=== PATIENT | male | born 1970 | race Caucasian/White ===

== ENCOUNTER → 2019-08-13 | Outpatient (CLI) | payer BC ==
--- NOTE | 2019-08-13 14:58 | Diagnostic Imaging Report ---
EXAMINATION: Lumbar spine series. INDICATION: Low back pain. FINDINGS: Alignment of the lumbar spine appears normal. The vertebral body heights appear maintained. There is mild lower lumbar facet hypertrophy, most significant at L5-S1. There also appears to be moderate L5-S1 disc space height loss. IMPRESSION: 1. Normal height and alignment of the lumbar spine with degenerative disc disease and facet arthropathy, most significantly demonstrated at the L5-S1 level. Dictated by: Dictated on workstation # [id number]
--- NOTE | 2019-08-13 15:01 | Diagnostic Imaging Report ---
INDICATION: Back pain. FINDINGS: There are no plain film findings that suggest abnormal cortical disruption of the sacrum or coccyx. Some mild irregularity is demonstrated of the distal coccygeal segments which can be a normal variant. There is no buckling of the foramina of the sacrum on the AP view. IMPRESSION: The plain film appearance of the sacrum and coccyx appears unremarkable. A well-defined smooth non-fusion of the distal coccygeal segments is most suggestive of a normal coccygeal variant; however, if the patient has pain at this location, further assessment with CT imaging or MRI could be considered. Dictated by: Dictated on workstation # [id number]
== END ==
LOC: RAD 13:05
PROVIDERS: ATTEND Family Medicine
DX: M47.817 Spondylosis without myelopathy or radiculopathy, lumbosacral region (principal); M51.37 Other intervertebral disc degeneration, lumbosacral region
CPT/HCPCS: 72100; 72220

== ENCOUNTER → 2020-05-18 | Outpatient (CLI) | payer BC ==
[2020-05-18 15:38] LABS: HEMOGLOBIN 14.7 g/dL (13.3-17.7); MEAN PLATELET VOLUME 8.7 fL (9.0-12.2); WHITE BLOOD COUNT 10.5 10^3/uL (4.3-11.0)
--- NOTE | 2020-05-18 16:37 | Diagnostic Imaging Report ---
Indication: Chest pain and shortness of breath. Time of exam: 3:32 PM Comparison is made with prior chest from 08/18/2013. Patchy bilateral airspace pulmonary infiltrates are noted consistent with pneumonia. Heart size is stable. No effusion or pneumothorax is detected. Impression: Patchy bilateral infiltrates consistent with pneumonia. Faxed to Irma Harris APRN at 5:27 p.m. by cvb Dictated by: Dictated on workstation # [id number]
== END ==
LOC: RAD 15:14
PROVIDERS: ATTEND Nurse Practitioner Family
DX: U07.1 COVID-19 (principal); R91.8 Other nonspecific abnormal finding of lung field
CPT/HCPCS: 36415; 71046; 85027; 85379

== ENCOUNTER → 2020-05-29 | Outpatient (CLI) | payer BC ==
[~2020-05-29] MED LIST: CATHETER FLUSH 10 ML SYR IV PRN; HOLD METFORMIN - RECEIVED CONTRAST 20 ML VIAL IV SCH; IOHEXOL 350 MG/ML 100 ML (OMNIPAQUE 350) VIAL IV ONE; NS 100 ML (IVPB) BAG IV ONE
--- NOTE | 2020-05-29 15:22 | Diagnostic Imaging Report ---
PROCEDURE: CT angiography of the chest with contrast. TECHNIQUE: Multiple contiguous axial images were obtained through the chest after uneventful bolus administration of intravenous contrast. 3D reconstructed CTA MIP acquisitions were also performed. Auto Exposure Controls were utilized during the CT exam to meet ALARA standards for radiation dose reduction. DATE: May 29, 2020. COMPARISON: Chest radiographs May 18, 2020. INDICATION: 50-year-old male, dyspnea. Shortness of breath. Diagnosis of Covid 19 infection on May 06, 2020. FINDINGS: There is extensive multifocal patchy groundglass consolidation involving both lungs. There is no identified lung mass. There is no pneumothorax. There is no pleural effusion. The central airways are patent. There is no identified pulmonary embolus. The main pulmonary artery diameter is within normal limits. The heart is not enlarged. There is no pericardial effusion. There is no identified abnormally enlarged mediastinal, hilar, or axillary lymph node which meets CT size criteria for adenopathy. The visualized portions of the upper abdomen are unremarkable. There is no identified acute bony abnormality. IMPRESSION: CT CHEST. 1. Extensive multifocal patchy areas of groundglass lung attenuation most compatible with multifocal pneumonia and would be consistent with the history of Covid 19 infection. This is not a specific imaging appearance. An acute pneumonitis would be a differential diagnostic consideration based on imaging appearance alone. 2. No identified pulmonary embolus. Dictated by: Dictated on workstation # [id number]
== END ==
LOC: RAD 14:17
PROVIDERS: ATTEND Family Medicine
DX: J98.4 Other disorders of lung (principal)
CPT/HCPCS: 71275

== ENCOUNTER 2020-09-02 07:25 | Emergency (ER) | payer BC ==
[~2020-09-02] VITALS: Ht 187 cm; Wt 81.6 kg
[2020-09-02 07:48] LABS: BASOPHILS # (AUTO) 0.1 10^3/uL (0.0-0.1); BASOPHILS % (AUTO) 1 % (0-10); EOSINOPHILS # (AUTO) 0.2 10^3/uL (0.0-0.3); EOSINOPHILS % (AUTO) 3 % (0-10); HEMATOCRIT 42 % (40-54); HEMOGLOBIN 14.6 g/dL (13.3-17.7); LYMPHOCYTES # (AUTO) 2.4 10^3/uL (1.0-4.0); LYMPHOCYTES % (AUTO) 37 % (12-44); MEAN CORPUSCULAR HEMOGLOBIN 32 pg (25-34); MEAN CORPUSCULAR HGB CONC 35 g/dL (32-36); MEAN CORPUSCULAR VOLUME 92 fL (80-99); MEAN PLATELET VOLUME 9.7 fL (9.0-12.2); MONOCYTES # (AUTO) 0.6 10^3/uL (0.0-1.0); MONOCYTES % (AUTO) 10 % (0-12); NEUTROPHILS # (AUTO) 3.1 10^3/uL (1.8-7.8); NEUTROPHILS % (AUTO) 49 % (42-75); PLATELET COUNT 240 10^3/uL (130-400); WHITE BLOOD COUNT 6.4 10^3/uL (4.3-11.0)
[2020-09-02 07:55] LABS: ALBUMIN 3.9 GM/DL (3.2-4.5); CHLORIDE 109 MMOL/L (98-107); POTASSIUM 4.3 MMOL/L (3.6-5.0); SODIUM 138 MMOL/L (135-145)
[2020-09-02 07:57] LABS: CALCIUM 8.7 MG/DL (8.5-10.1)
[2020-09-02 07:58] LABS: GLUCOSE 122 MG/DL (70-105); TOTAL PROTEIN 7.2 GM/DL (6.4-8.2)
[2020-09-02 07:59] LABS: CARBON DIOXIDE 20 MMOL/L (21-32)
[2020-09-02 08:00] LABS: BILIRUBIN,TOTAL 0.2 MG/DL (0.1-1.0)
--- NOTE | 2020-09-02 08:00 | ED Neurological Problem ---
General Chief Complaint: Facial Problems Stated Complaint: NUMBNESS IN FACE Nursing Triage Note: pt presents to ed via pov from home with complaints of altered taste and numbness in his tongue since 08/31 and l sided facial numbness and facial droop since this am. Nursing Sepsis Screen: No Definite Risk Source: patient Exam Limitations: no limitations History of Present Illness Date Seen by Provider: Sep 02, 2020 Time Seen by Provider: 07:36 Initial Comments Patient presents ER by private conveyance from home with chief complaint that this morning he woke and while he was trying to brush his teeth half awake he found it very hard to spit. He looked in the mirror and his left face was drooping. He also was having some altered sensation like his left side of his tongue anteriorly is asleep that started on , 2 days ago. Facial droop was present as far as he knows from the time he woke. He is not having any s lurred speech confusion difficulty walking numbness weakness elsewhere. He has no history of hypertension hyperlipidemia coronary disease stroke diabetes or smoking. He follows with Dr. Aguirre routinely and was warned that he is prediabetic. No significant family history except for diabetes and hypertension. No fevers or chills but several months ago in April he was diagnosed with COVID-19. He has been dealing with sinusitis bilaterally but he says that is chronic and mild. He takes Mucinex. The patient took his blood pressure this morning it was 118/50. Allergies and Home Medications Allergies Coded Allergies: No Known Drug Allergies (Verified , 07/28/07) Patient Home Medication List Home Medication List Reviewed: Yes Review of Systems Review of Systems Constitutional: No chills, No diaphoresis Eyes: Denies Blindness, Denies Drainage Ears, Nose, Mouth, Throat: see HPI; denies ear pain, denies ear discharge Respiratory: No cough, No short of breath Cardiovascular: No edema, No Hx of Intervention, No syncope, No vascular heart diseas Gastrointestinal: No abdominal pain, No nausea All Other Systems Reviewed Negative Unless Noted: Yes Past Qwerdcm-Fpegjy-Yxbczr Hx Patient Social History Alcohol Use: Occasionally Uses Drug of Choice: Denies Smoking Status: Never a Smoker Recent Infectious Disease Expo: No Past Medical History Surgeries: Yes (NOVEMBER 2002 OUTPT KNEE SURG ) Respiratory: No Cardiac: No Neurological: No Reproductive Disorders: No Genitourinary: No Gastrointestinal: No Musculoskeletal: No Endocrine: No HEENT: No Cancer: No Psychosocial: No Integumentary: No Blood Disorders: No Physical Exam Vital Signs Vital Signs - First Documented 09/02/20 07:31 Temp 36.0 Pulse 89 Resp 20 B/P (MAP) 173/103 (126) Pulse Ox 95 Capillary Refill : Less Than 3 Seconds Height, Weight, BMI Height: '" Weight: lbs. oz. kg; 23.00 BMI Method:Stated General Appearance: WD/WN, no apparent distress HEENT: PERRL/EOMI, normal ENT inspection, TMs normal, pharynx normal, other (Mild left facial droop) Neck: non-tender, full range of motion, supple, normal inspection Respiratory: lungs clear, normal breath sounds, no respiratory distress, no accessory muscle use Cardiovascular: normal peripheral pulses, regular rate, rhythm Peripheral Pulses: 2+ Radial Pulses (R), 2+ Radial Pulses (L) Neurologic/Psychiatric: alert, normal mood/affect, oriented x 3, other (Using a sharp object he had similar sensation bilateral face. He has mild drooping of the left side of his smile and decreased wrinkling of the left forehead. He describes paresthesia in his left anterior tongue) Crainal Nerves: normal hearing, normal speech, PERRL Coordination/Gait: normal finger to nose, normal gait Motor/Sensory: no pronator drift Skin: normal color, warm/dry Stroke Onset of Symptoms Date of Onset of Symptoms: Sep 02, 2020 Time of Symptom Onset: 06:30 Onset of Symptoms: Yes Symptoms onset unknown: Yes NIH Stroke Scale Assessment Select: Initial Level of Consciousness: 0=Alert (0), Level of Consciousness- Questions: 0=Answers both month/age (0), LOC Commands: 0=Performs both tasks (0), Gaze: Normal (0), Visual Rooney: 0=No visual loss (0), Facial Movement (Facial Paresis): 1=Minor paralysis (1), Motor Function-Arms Right: 0=No drift (0), Motor Function-Arms Left: 0=No drift (0), Motor Function-Legs Right: 0=No drift (0), Motor Function-Legs Left: 0=No drift (0), Limb Ataxia: 0=Absent (0), Sensory: 0=Normal:no loss (0), Best Language: 0=No aphasia (0), Dysarthria: 0=Normal (0), Extinction & Inattention: 0=No abnormality (0), Total: 1 Stroke Thrombolytic Exclusion Age 18 or Over: Yes Acute intenal hemorrhage: No History of CVA: No Uncontrolled Coagulation Defec: No Intracranial Hemorrhage: No Severe Hypertension: No GI or Bleed: No Subarachnoid Hemorrhage: No Intracranial Neoplasm/Aneurysm: No Oral Anticoagulants: No Surgery or Trauma: No Puncture of Non-Compressible V: No Recent CPR: No Diabetic Hemorrhagic Retinopat: No Organ Biopsy: No Recent Obstetric Delivery: No Glucose: No (120) Significant Hepatic Dysfunctio: No NIH Stoke Scale >22: No Bacterial Endocarditis: No Pericarditis: No Improving Symptoms: No Platelets: No TPA Contraindication: No IV - TPa Received IV - TPa Procedure Performed?: No (Inadequate benefits per risk and 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) Progress/Results/Core Measures Results/Orders Lab Results Laboratory Tests Test 09/02/20 07:38 Range/Units White Blood Count 6.4 4.3-11.0 10^3/uL Red Blood Count 4.56 4.30-5.52 10^6/uL Hemoglobin 14.6 13.3-17.7 g/dL Hematocrit 42 40-54 % Mean Corpuscular Volume 92 80-99 fL Mean Corpuscular Hemoglobin 32 25-34 pg Mean Corpuscular Hemoglobin Concent 35 32-36 g/dL Red Cell Distribution Width 12.7 10.0-14.5 % Platelet Count 240 130-400 10^3/uL Mean Platelet Volume 9.7 9.0-12.2 fL Immature Granulocyte % (Auto) 0 % Neutrophils (%) (Auto) 49 42-75 % Lymphocytes (%) (Auto) 37 12-44 % Monocytes (%) (Auto) 10 0-12 % Eosinophils (%) (Auto) 3 0-10 % Basophils (%) (Auto) 1 0-10 % Neutrophils # (Auto) 3.1 1.8-7.8 10^3/uL Lymphocytes # (Auto) 2.4 1.0-4.0 10^3/uL Monocytes # (Auto) 0.6 0.0-1.0 10^3/uL Eosinophils # (Auto) 0.2 0.0-0.3 10^3/uL Basophils # (Auto) 0.1 0.0-0.1 10^3/uL Immature Granulocyte # (Auto) 0.0 0.0-0.1 10^3/uL Prothrombin Time 12.6 12.2-14.7 SEC INR Comment 0.9 0.8-1.4 Activated Partial Thromboplast Time 33 24-35 SEC D-Dimer 0.37 0.00-0.49 UG/ML Sodium Level 138 135-145 MMOL/L Potassium Level 4.3 3.6-5.0 MMOL/L Chloride Level 109 H 98-107 MMOL/L Carbon Dioxide Level 20 L 21-32 MMOL/L Anion Gap 9 5-14 MMOL/L Blood Urea Nitrogen 16 7-18 MG/DL Creatinine 0.98 0.60-1.30 MG/DL Estimat Glomerular Filtration Rate > 60 BUN/Creatinine Ratio 16 Glucose Level 122 H 70-105 MG/DL Glucometer 120 H 70-110 MG/DL Calcium Level 8.7 8.5-10.1 MG/DL Corrected Calcium 8.8 8.5-10.1 MG/DL Total Bilirubin 0.2 0.1-1.0 MG/DL Aspartate Amino Transf (AST/SGOT) 21 5-34 U/L Alanine Aminotransferase (ALT/SGPT) 33 0-55 U/L Alkaline Phosphatase 34 L 40-136 U/L Troponin I < 0.028 <0.028 NG/ML Total Protein 7.2 6.4-8.2 GM/DL Albumin 3.9 3.2-4.5 GM/DL My Orders Orders - RACHEAL DAILEY Cbc With Automated Diff (09/02/20 07:35) Protime With Inr (09/02/20 07:35) Partial Thromboplastin Time (09/02/20 07:35) Comprehensive Metabolic Panel (09/02/20 07:35) Fibrin Degradation Products (09/02/20 07:35) Troponin I (09/02/20 07:35) Ekg Tracing (09/02/20 07:35) Nothing By Mouth (09/02/20 Breakfast) Accucheck Stat ONCE (09/02/20 07:35) Ed Iv/Invasive Line Start (09/02/20 07:35) Ed Iv/Invasive Line Start (09/02/20 07:35) Vital Signs Stroke Patient Q15M (09/02/20 07:35) Ct Head Wo-R/O Stroke (09/02/20 07:35) O2 (09/02/20 07:35) Monitor-Rhythm Ecg Trace Only (09/02/20 07:35) Dysphagia Screening Tool (09/02/20 07:35) Lipid Panel (09/03/20 06:00) Vital Signs/I&O 09/02/20 07:31 Temp 36.0 Pulse 89 Resp 20 B/P (MAP) 173/103 (126) Pulse Ox 95 Blood Pressure Mean: 126 FSBG Bedside Testing Finger Stick Blood Glucose: 120 Blood Glucose Action Taken: PROVIDER NOTIFIED Progress Progress Note : Time: 07:58 Progress Note At 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 There is precedence for this with several case studies written about ipsilateral additional cranial nerve involvement that is usually mild similar to his presentation. We will go ahead and complete a CT and some labs just to rule out significant intracranial pathology. If this is okay then I would set him up to follow-up with Dr. Aguirre on antivirals and steroids. We will observe him for the next hour or so for change in symptoms. We have given good return precautions. Because of sensation on sharp pinpoint challenge of his face is intact bilaterally I suspect that the numbness is feeling in his face is more due to the left facial muscle side due to cranial nerve VII paresis. The left anterior tongue could be related to cranial nerve V versus 7. Initial ECG Impression Date: Sep 02, 2020 Initial ECG Impression Time: 07:45 Initial ECG Rate: 82 Initial ECG Rhythm: Normal Sinus Initial ECG Intervals: Normal Initial ECG Impression: Normal Initial ECG Comparisson: No Previous ECG Available Comment Normal sinus rhythm without clinically relevant ST changes. Diagnostic Imaging Diagonstic Imaging: CT (Without IV contrast) Plain Films/CT/US/NM/MRI: head Comments No acute intracranial pathology. No calvarial fracture, tumor, midline shift, hemorrhage. NAME: [facility] MED REC#: [id number] PT STATUS: REG ER : 1970 PHYSICIAN: RACHEAL DAILEY MD ADMIT DATE: 09/02/20/ER Draft Date of Exam:09/02/20 CT HEAD WO-R/O STROKE PROCEDURE: CT head wo r/o stroke. TECHNIQUE: Multiple contiguous axial images were obtained through the brain without the use of intravenous contrast. Auto Exposure Controls were utilized during the CT exam to meet ALARA standards for radiation dose reduction. Indication: Altered mental status. Comparison: 05/23/2011. Discussion: No adverse interval change. No intracranial hemorrhage, mass, midline shift, or hydrocephalus. The ventricles and sulci are normal size and configuration for age. The visualized orbits, paranasal sinuses, mastoid air cells, and calvarium are unremarkable. Impression: 1. Stable negative head CT. Dictated on workstation # [id number] Dict: 09/02/20 0810 Trans: 09/02/20 0814 [id number] Interpreted by: ALEKSANDR IVERSON MD Electronically signed by: Reviewed: Reviewed by Me Departure Impression Primary Impression: Facial paralysis/Bethel palsy Disposition: HOME, SELF-CARE Condition: Stable Departure-Patient Inst. Decision time for Depature: 08:10 Referrals: MIGUEL AGUIRRE DO (PCP/Family) Primary Care Physician Patient Instructions: Harris's Palsy Exercises, Harris's Palsy (DC) Add. Discharge Instructions: Prednisone 3 tablets daily for 5 days. Then taper off: 2 tablets daily for 2 days. 1 tablet daily for 2 days. Valacyclovir 1 tablet 3 times a day for a week. If you have drooping of the eyelid then you need to use some kind of a eye moisturizing drops several times a day to keep your affected eye from getting dried out. You may follow-up with Dr. Aguirre to help manage symptoms. Return to the ER promptly if you are having new symptoms that extend beyond your face and mouth. Typically symptoms last in the matter of weeks however if you were lasting more than a month then you need to follow-up with your primary care doctor to help manage symptoms. All discharge instructions reviewed with patient and/or family. Voiced understanding. Scripts Prednisone (Prednisone) 20 Mg Tab 60 MG PO DAILY for 9 Days, #21 TAB 0 Refills 3 tabs (60mg) daily x 5 days 2 tabs (40mg) daily x 2 days 1 tab (20mg) daily x 2 days Prov: RACHEAL DAILEY 09/02/20 Valacyclovir HCl (Valacyclovir) 1,000 Mg Tablet 1000 MG PO TID for 7 Days, #21 TAB 0 Refills Prov: RACHEAL DAILEY 09/02/20 Work/School Note: Work Release Form Date Seen in the Emergency Department: Sep 02, 2020 Return to Work: Sep 04, 2020 Restrictions: No Restrictions RACHEAL DAILEY Sep 02, 2020 08:00
[2020-09-02 08:01] LABS: ALKALINE PHOSPHATASE 34 U/L (40-136); CREATININE SERUM 0.98 MG/DL (0.60-1.30); GFR ESTIMATED > 60
[2020-09-02 08:02] LABS: BUN/CREATININE RATIO 16
[2020-09-02 08:04] LABS: ALANINE AMINOTRANSFERASE 33 U/L (0-55)
[2020-09-02 08:11] LABS: FIBRIN DEGRADATION PRODUCTS 0.37 UG/ML (0.00-0.49); INR 0.9 (0.8-1.4); PROTHROMBIN TIME PATIENT 12.6 SEC (12.2-14.7)
--- NOTE | 2020-09-02 08:14 | Diagnostic Imaging Report ---
PROCEDURE: CT head wo r/o stroke. TECHNIQUE: Multiple contiguous axial images were obtained through the brain without the use of intravenous contrast. Auto Exposure Controls were utilized during the CT exam to meet ALARA standards for radiation dose reduction. Indication: Altered mental status. Comparison: 05/23/2011. Discussion: No adverse interval change. No intracranial hemorrhage, mass, midline shift, or hydrocephalus. The ventricles and sulci are normal size and configuration for age. The visualized orbits, paranasal sinuses, mastoid air cells, and calvarium are unremarkable. Impression: 1. Stable negative head CT. Dictated by: Dictated on workstation # [id number]
[2020-09-02] MEDS ORDERED: VALA10007 PO (08:25)
[2020-09-02] MEDS ORDERED: PRD20T PO ×2 (08:25→08:27)
[2020-09-02 08:35] VITALS: BP 170/98
== END 2020-09-02 08:35 | disposition home or self-care (01) ==
LOC: EDUNIT# 07:25 → ER 07:28
DX: G51.0 Bell's palsy (principal)
CPT/HCPCS: 36415; 70450; 80053; 82962; 84484; 85025; 85379; 85610; 85730; 93005; 93041

== ENCOUNTER → 2021-07-27 | Outpatient (CLI) | payer BC ==
[~2021-07-27] MED LIST changes: -CATHETER FLUSH 10 ML SYR IV PRN; -HOLD METFORMIN - RECEIVED CONTRAST 20 ML VIAL IV SCH; -IOHEXOL 350 MG/ML 100 ML (OMNIPAQUE 350) VIAL IV ONE; -NS 100 ML (IVPB) BAG IV ONE; +PRD20T PO; +VALA10007 PO
--- NOTE | 2021-07-27 15:31 | Diagnostic Imaging Report ---
PROCEDURE: US Thyroid. TECHNIQUE: Multiple real-time grayscale images were obtained of the thyroid in various projections. INDICATION: Thyromegaly. CORRELATION is made with prior thyroid ultrasound from 11/03/2014. Right lobe of the thyroid measures 5.5 x 1.8 x 2.1 cm and the left lobe measures 4.5 x 1.5 x 1.4 cm. The isthmus is 3 mm in thickness. There is homogeneous echotexture to both thyroid lobes. No thyroid nodule or mass is detected. IMPRESSION: Continued unremarkable thyroid ultrasound. No thyroid mass is detected. Dictated by: Dictated on workstation # [id number]
== END ==
LOC: RAD 14:46
PROVIDERS: ATTEND Family Medicine
DX: E01.0 Iodine-deficiency related diffuse (endemic) goiter (principal)
CPT/HCPCS: 76536

== ENCOUNTER 2021-08-14 13:11 | Outpatient (CLI) | payer BC ==
[~2021-08-14] VITALS: Ht 188 cm; Wt 149.5 kg
== END 2021-08-14 14:17 | disposition home or self-care (01) ==
LOC: PREOP 13:11
PROVIDERS: ATTEND Surgery
DX: Z01.818 Encounter for other preprocedural examination (principal)

== ENCOUNTER 2021-10-26 11:03 | Day surgery (SDC) | payer BC ==
--- NOTE | 2021-09-11 11:53 | HISTORY AND PHYSICAL ---
DATE OF SERVICE: ATTENDING PRIMARY CARE PHYSICIAN: Dr. Aguirre. DATE OF ADMISSION: 09/12/2021 HISTORY OF PRESENT ILLNESS: The patient is a 51-year-old male, who was referred over to us in need of a screening colonoscopy. He reports that at this point in his life, he has never had one done before. He denies any diarrhea or constipation as well as no blood in his stool. He also denies any family history of any colon cancer. PAST MEDICAL HISTORY: Gastroesophageal reflux disease. PAST SURGICAL HISTORY: Right knee reconstruction in 2014 and left bicep repair in 2017. ALLERGIES: No known drug allergies. MEDICATIONS: Benadryl and famotidine 20 mg at bedtime. SOCIAL HISTORY: Negative for tobacco smoke and social for alcohol. FAMILY HISTORY: Father, lung cancer, prostate cancer, DVT of the right lower extremity and mother, diabetes. REVIEW OF SYSTEMS: This is a well-nourished male in no acute distress. He is not experiencing any shortness of breath or difficulty breathing. No chest pain, palpitations or diaphoresis. No nausea, vomiting or abdominal pain. No diarrhea or constipation. No red blood per rectum. No dark tarry stools. No fever or chills. No recent inadvertent weight loss. All other review of systems are negative. PHYSICAL EXAMINATION: VITAL SIGNS: Blood pressure 142/82 and current weight is 324.3 pounds at 6 feet 2 inches. CHEST: Clear. Good breath sounds bilaterally. HEART: Regular, no murmurs. EXTREMITIES: No lower extremity edema. Negative Homans sign. HEENT: No scleral icterus. NECK: No cervical lymphadenopathy. ABDOMEN: Soft, nontender, and nondistended. SKIN: Warm, dry, and pink. NEUROLOGIC: Awake, alert, and oriented x3. ASSESSMENT AND PLAN: A 51-year-old male, who is in need of a screening colonoscopy. The risks and benefits of the procedure as well as the procedure and home care instructions were explained to the patient. He verbalized understanding of instructions and agrees to proceed as planned. At this time, we will proceed with scheduling him for a screening colonoscopy. Job ID: [id number] DocumentID: [id number] Dictated Date: 09/11/2021 08:46:57 Practice Assistant Date: 09/11/2021 11:52:30 Dictated By: PATRICIA MARLOW
--- NOTE | 2021-10-23 12:07 | HISTORY AND PHYSICAL ---
DATE OF SERVICE: DATE OF ADMISSION: 10/26/2021. ATTENDING PRIMARY CARE PHYSICIAN: Dr. Aguirre. HISTORY OF PRESENT ILLNESS: The patient is a 51-year-old male who was referred over to us in need of a screening colonoscopy. He reports that at this point in his life, he has never had one done before. He denies any diarrhea or constipation as well as no blood in his stool. He also denies any family history of any colon cancer. PAST MEDICAL HISTORY: Gastroesophageal reflux disease. PAST SURGICAL HISTORY: Right knee reconstruction in 2013, left bicep repair in 2017. ALLERGIES: No known drug allergies. MEDICATIONS: Benadryl, famotidine 20 mg at bedtime. SOCIAL HISTORY: Negative for tobacco smoke, social for alcohol. FAMILY HISTORY: Father, lung cancer, prostate cancer, DVT in the right lower extremity. Mother, diabetes. REVIEW OF SYSTEMS: This is a well-nourished male in no acute distress. He is not experiencing any shortness of breath or difficulty breathing. No chest pain, palpitations or diaphoresis. No nausea, vomiting or abdominal pain. No diarrhea or constipation. No red blood per rectum. No dark tarry stools. No fever or chills. No recent inadvertent weight loss. All other review of systems negative. PHYSICAL EXAMINATION: VITAL SIGNS: Blood pressure 142/82. Current weight is 324.3 pounds at 6 feet 2 inches. CHEST: Clear. Good breath sounds bilaterally. HEART: Regular, no murmurs. EXTREMITIES: No lower extremity edema. Negative Homans sign. HEENT: No scleral icterus. NECK: No cervical lymphadenopathy. ABDOMEN: Soft, nontender, nondistended. SKIN: Warm, dry and pink. NEUROLOGIC: Awake, alert and oriented x3. ASSESSMENT AND PLAN: A 51-year-old male who is in need of a screening colonoscopy. The risks and benefits of the procedure as well as the procedure and home care instructions were explained to the patient. He verbalized understanding of instructions and agrees to proceed as planned. At this time, we will proceed with scheduling him for a screening colonoscopy. Job ID: [id number] DocumentID: [id number] Dictated Date: 10/23/2021 11:56:38 Stick Feeder Date: 10/23/2021 12:06:53 Dictated By: OLMAN WILSON APRN
[~2021-10-26] VITALS: Ht 188 cm; Wt 149.5 kg
[2021-10-26] MEDS ORDERED: LACTATED RINGERS 1,000 ML IV ONE (11:06)
[2021-10-26] MEDS ORDERED: LACTATED RINGERS 1,000 ML IV STA (11:09)
[2021-10-26] MEDS ORDERED: LIDOCAINE JELLY 2% 6 ML SYRINGE MM PRN (11:15)
--- NOTE | 2021-10-26 11:17 | Progress Note-Pre Operative ---
Pre-Operative Progress Note H&P Reviewed The H&P was reviewed, patient examined and no changes noted. Date Seen by Provider: Oct 26, 2021 Time Seen by Provider: 11:00 Date H&P Reviewed: Oct 26, 2021 Time H&P Reviewed: 11:00 Pre-Operative Diagnosis: screening ISSAC Coles MD Oct 26, 2021 11:16
--- NOTE | 2021-10-26 11:17 | Discharge Inst-Surgical ---
D/C Lap Instructions-BETY Follow Up Activity as tolerated High Fiber Diet 25g or more per day Avoid Alcohol, Caffeine, Spicy [place] and Acid foods. Drink 64 fluid oz or more of fluids per day. Symptoms to Report: Fever over 101 degree F, Nausea/Vomiting If any problems/questions: Contact your physician or go to Emergency Room ISSAC ALBERT MD Oct 26, 2021 11:17
[2021-10-26] MEDS ORDERED: FAMO20TA3 PO (11:18)
[2021-10-26] MEDS ORDERED: DIPH25CA79 PO (11:18)
[2021-10-26 11:20] VITALS: BP 120/81
[2021-10-26] MEDS ORDERED: ONDANSETRON 4 MG/2 ML (SDV) Z0FRAN IVP PRN (11:30)
[2021-10-26] MEDS ORDERED: ONDANSETRON 4 MG (ZOFRAN) ORAL DISSOLVE TAB PO PRN (11:30)
[2021-10-26] MEDS ORDERED: PROPOFOL INJECTION 50 ML IV ONE (11:56)
[2021-10-26] MEDS ORDERED: MIDAZOLAM 2 MG/2 ML (VERSED) VIAL ONE (11:56)
[2021-10-26 12:18] VITALS: BP 114/70
[2021-10-26 12:23] VITALS: BP 112/71
[2021-10-26 12:25] VITALS: BP 116/72
--- NOTE | 2021-10-26 12:51 | Progress Note-Post Operative ---
Post-Operative Progess Note Surgeon (s)/Crimper Operator (s) Surgeon ISSAC ALBERT MD Crimper Operator: none Pre-Operative Diagnosis screening colo Post-Operative Diagnosis mild sigmoid diveticulosis. Procedure & Operative Findings Date of Procedure 10/26/21 Procedure Performed/Findings colonoscopy Anesthesia Type mac Estimated Blood Loss Estimated blood loss (mL): minimal Specimens/Packing Specimens Removed none ISSAC ALBERT MD Oct 26, 2021 12:51
[2021-10-26 12:52] VITALS: BP 116/72
--- NOTE | 2021-10-26 14:02 | Anesthesia-General Post-Op ---
MAC Patient Condition Mental Status/LOC: Same as Preop Cardiovascular: Satisfactory Nausea/Vomiting: Absent Respiratory: Satisfactory Pain: Controlled Complications: Absent Post Op Complications Complications None Follow Up Care/Instructions Patient Instructions None needed. Anesthesiology Discharge Order Discharge Order Patient is doing well, no complaints, stable vital signs, no apparent adverse anesthesia problems. No complications reported per nursing. MARYURI LAM CRNA Oct 26, 2021 14:02
--- NOTE | 2021-10-26 17:47 | OPERATIVE REPORT ---
DATE OF SERVICE: 10/26/2021 ATTENDING PRIMARY CARE PHYSICIAN: Milagros Aguirre DO. PREOPERATIVE DIAGNOSIS: Screening colonoscopy. POSTOPERATIVE DIAGNOSIS: Mild sigmoid diverticulosis. PROCEDURE: Colonoscopy. SURGEON: Issac Albert MD. ANESTHESIA: Monitored anesthesia care. ESTIMATED BLOOD LOSS: Minimal. FINDINGS: Same as postoperative diagnoses. DISPOSITION: The patient tolerated the procedure well. INDICATIONS: The patient is a 51-year-old male referred over to us for screening colonoscopy. He has not had a colonoscopy up to this point in his life. He states that for the most part he is doing well, does not report any major issues with diarrhea nor constipation as well as no red blood per rectum nor any dark tarry stools. He also does not report any family history of colon cancer. DESCRIPTION OF PROCEDURE: The patient was brought to the endoscopy suite, laid in the left lateral decubitus position. After adequate IV pain and sedative medications and monitored anesthesia care, a digital rectal examination was performed. No palpable masses. Prostate gland was palpable and appeared normal. The endoscope was then intubated into the anus and rectum gently insufflated. The endoscope was then advanced through the valves of [place] of the rectum with no polyps or any neoplasms identified. Through the sigmoid colon, a mild sigmoid diverticulosis was identified. The endoscope was then advanced and remainder of the descending, transverse and ascending colon to the cecum, which were normal. There were no polyps or any neoplasms identified. The endoscope was then slowly withdrawn while taking a second look and suctioning of residual air. We will recommend continued medical management with a high-fiber diet with a fiber supplement, which should equal or exceed 30 grams daily as well as significant amounts of water to promote soft stools on a daily basis. If he is asymptomatic, he does not need another colonoscopy for another 10 years. Job ID: [id number] DocumentID: [id number] Dictated Date: 10/26/2021 12:16:50 [employer] Date: 10/26/2021 17:47:19 Dictated By: ISSAC ALBERT MD [facility]
== END 2021-10-26 12:54 | disposition home or self-care (01) ==
LOC: ENDO 11:03
PROVIDERS: ATTEND Surgery
DX: Z12.11 Encounter for screening for malignant neoplasm of colon (principal); K57.30 Diverticulosis of large intestine without perforation or abscess without bleeding; E66.9 Obesity, unspecified; Z68.41 Body mass index [BMI] 40.0-44.9, adult